=== PATIENT | female | born 1990 | race Two or more races ===

== ENCOUNTER 2024-10-30 09:25 | Outpatient (CLI) | payer OTHER | END 2024-10-30 09:38 | disposition home or self-care (01) | LOC: MAMO-SONO 09:25 | PROVIDERS: ATTEND General Practice | DX: M54.17 Radiculopathy, lumbosacral region (principal); M51.362 Other intervertebral disc degeneration, lumbar region with discogenic back pain and lower extremity pain; L70.9 Acne, unspecified; N39.0 Urinary tract infection, site not specified; Z11.3 Encounter for screening for infections with a predominantly sexual mode of transmission; Z12.31 Encounter for screening mammogram for malignant neoplasm of breast; Z13.21 Encounter for screening for nutritional disorder; Z12.4 Encounter for screening for malignant neoplasm of cervix; Z13.0 Encounter for screening for diseases of the blood and blood-forming organs and certain disorders involving the immune mechanism; Z13.1 Encounter for screening for diabetes mellitus; Z13.220 Encounter for screening for lipoid disorders; Z13.29 Encounter for screening for other suspected endocrine disorder; Z32.00 Encounter for pregnancy test, result unknown; Z13.89 Encounter for screening for other disorder; N63.0 Unspecified lump in unspecified breast ==